=== PATIENT | male | born 1965 | race American Indian/Alaskan Native ===

== ENCOUNTER 2021-11-17 12:43 | Outpatient (CLI) | payer OTHER ==
--- NOTE | 2021-11-17 15:05 | Fluoroscopy Report ---
Upper GI HISTORY: K21.9 GASTROESOPHAGEAL REFLUX DISEASE W/O ESOPHAGITIS. Technique: Single and double contrast barium technique utilized to evaluate the esophagus, stomach, and duodenal C-loop. Findings: No mucosal irregularity, mass, mass effect, or critical stenosis. Gastric contents mixed with barium slightly obscured evaluation of the stomach; however, no gross abnormality identified. There were no abnormal tertiary contractions as seen with dysmotility. There was moderate gastroesophageal reflux reaching the mid esophagus. Impression: Moderate gastroesophageal reflux. Fluoroscopic time: 2.5 minutes Number of fluoroscopic images: 28 Signer Name: Elias Dominguez MD Signed: 11/17/2021 3:01 PM Workstation Name: [id number]
== END 2021-11-17 12:44 | disposition home or self-care (01) ==
LOC: FLUORO 12:43
PROVIDERS: ATTEND Internal Medicine
DX: K21.9 Gastro-esophageal reflux disease without esophagitis (principal)
CPT/HCPCS: 74246